=== PATIENT | male | born 1945 | race Caucasian/White ===

== ENCOUNTER → 2020-12-21 | Outpatient (CLI) | payer MEDICARE, BC ==
--- NOTE | 2020-12-21 12:44 | RAD ---
EXAM: Right wrist, 5 views; right hand, 3 views. HISTORY: Pain. COMPARISON: None. FINDINGS: 5 views of the right wrist and 3 views of the right hand are obtained. There is no acute fr acture, dislocation or subluxation. There is a small corticated ossicle overlying the ulnocarpal join t space, likely developmental. There is also a tiny ossicle or calcification adjacent to the triquetr um and fusiform which may be a joint loose body or chronic nonunited fracture fragment. There is face t distal interphalangeal joint space narrowing and spurring. There is also spurring involving the fir st interphalangeal joint. There is a tiny linear density along the base of the first proximal phalanx , likely due to a chronic nonunited avulsion fracture fragment. IMPRESSION: 1. No convincing acute osseous finding. 2. 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 Tiny ossicle or calcification adjacent to the triquetrum and fusiform, most likely due to a chroni c nonunited fracture fragment or joint loose body. There is also a tiny linear radiodensity along the base of the first proximal phalanx which may be a tiny nonunited fracture fragment. The possibility of a tiny linear radiodense foreign body is not excluded. Electronically signed by: Nydia Fernández MD (12/21/2020 12:41 PM) [id number]
== END ==
LOC: RAD 12:19
PROVIDERS: ATTEND Family Medicine
DX: M19.031 Primary osteoarthritis, right wrist (principal); M25.841 Other specified joint disorders, right hand
CPT/HCPCS: 73110; 73130